=== PATIENT | female | born 1985 | race Caucasian/White ===

== ENCOUNTER 2022-06-08 19:53 | Emergency (ER) | payer OTHER ==
[~2022-06-08] VITALS: Ht 167.6 cm; Wt 72.6 kg
== END 2022-06-09 01:18 | disposition home or self-care (01) ==
LOC: ER 19:53
DX: I10 Essential (primary) hypertension (principal); F41.0 Panic disorder [episodic paroxysmal anxiety]

== ENCOUNTER 2024-12-12 09:10 | Outpatient (CLI) | payer OTHER ==
[~2024-12-12 09:10] MED LIST: COLACE100 MG PO; NAPROXEN500 MG PO; PERCOCET 5-3251 EACH PO; SIMETHICONE80 MG PO
== END 2024-12-12 09:13 | disposition home or self-care (01) ==
LOC: SONOGRAMA 09:10
DX: N91.0 Primary amenorrhea (principal)